=== PATIENT | female | born 1980 | race Caucasian/White ===

== ENCOUNTER 2022-06-15 08:12 | Outpatient (CLI) | payer BC, SELFPAY ==
--- NOTE | 2022-06-15 08:15 | CRLHL7_ITS ---
For Patients: As a result of the Century Cures Act, medical imaging exams and procedure reports are released immediately into your electronic medical record. You may view this report before your referring provider. If you have questions, please contact your health care provider. LEFT BREAST ULTRASOUND CLINICAL HISTORY: LEFT breast mass/asymmetry. COMPARISON: 06/05/2022. TECHNIQUE: Real-time ultrasound imaging of LEFT breast with imaging documentation. FINDINGS: Targeted sonogram LEFT breast 11 o`clock 3 cm from the nipple performed. This corresponds with the area of nodular density on prior mammogram. In this location there is a simple circumscribed anechoic cyst with increased through-transmission measuring 2.4 x 1.4 x 1.7 cm. IMPRESSION: Simple cyst LEFT breast 11 o`clock 3 cm from the nipple measuring 2.4 cm. RECOMMENDATIONS: Routine BILATERAL screening mammography in 1 year time. Results and recommendations were discussed with the patient at the time of the exam. BI-RADS Category 2: Benign A lay language report of this examination will be provided to the patient. Dictated by Harnider Ruiz MD @ 06/15/2022 9:00:15 AM jj/Dictated by: Harinder Ruiz MD @ 06/15/2022 9:00:00 AM (Electronically Signed)
== END 2022-06-15 08:13 | disposition home or self-care (01) ==
LOC: MAMMO 08:13
PROVIDERS: PCP Family Medicine; Visit Provider Family Medicine
DX: N63.20 Unspecified lump in the left breast, unspecified quadrant (principal); N60.02 Solitary cyst of left breast; R92.8 Other abnormal and inconclusive findings on diagnostic imaging of breast
CPT/HCPCS: 76642

== ENCOUNTER 2024-08-10 13:31 | Outpatient (CLI) | payer OTHER, SELFPAY ==
[2024-08-14 13:00] LABS: HPV Source Cervical; HPV, High Risk by TMA Not Detected
== END 2024-08-10 13:32 | disposition home or self-care (01) ==
PROVIDERS: PCP Family Medicine; Visit Provider Obstetrics & Gynecology
DX: E28.39 Other primary ovarian failure (principal); R68.82 Decreased libido; E28.319 Asymptomatic premature menopause; Z12.4 Encounter for screening for malignant neoplasm of cervix; Z11.51 Encounter for screening for human papillomavirus (HPV)
CPT/HCPCS: 84270; 84402; 84403; 84443; 86255; 86376; 87624; 87625; 88141; 88142

== ENCOUNTER 2024-11-21 15:21 | Outpatient (CLI) | payer OTHER, SELFPAY ==
--- NOTE | 2024-11-21 15:45 | CRLHL7_ITS ---
For Patients: As a result of the Century Cures Act, medical imaging exams and procedure reports are released immediately into your electronic medical record. You may view this report before your referring provider. If you have questions, please contact your health care provider. CLINICAL HISTORY: Primary ovarian failure TECHNIQUE: Real time, beaver scale images were acquired of the pelvis using a transabdominal and transvaginal approach. Color Doppler analysis was performed of the ovaries. FINDINGS: The uterus measures 9.3 x 4.7 x 4.6 centimeters. The endometrium measures 5 millimeters. The right ovary measures 2.5 x 2.3 x 2.7 centimeters left ovary measures 2.5 x 1.5 x 2.1 centimeters. Blood flow to both ovaries. Benign-appearing follicular cysts. Small amount of free fluid in the pelvis. IMPRESSION: Unremarkable exam. Dictated by Shagufta Barclay MD @ 11/24/2024 9:45:20 AM (Electronically Signed)
== END 2024-11-21 15:22 | disposition home or self-care (01) ==
LOC: US 15:22
PROVIDERS: Visit Provider Obstetrics & Gynecology
DX: E28.39 Other primary ovarian failure (principal)
CPT/HCPCS: 76830; 76856

== ENCOUNTER 2025-03-13 16:45 | Outpatient (CLI) | payer OTHER, SELFPAY ==
--- NOTE | 2025-03-13 17:00 | CRLHL7_ITS ---
For Patients: As a result of the Century Cures Act, medical imaging exams and procedure reports are released immediately into your electronic medical record. You may view this report before your referring provider. If you have questions, please contact your health care provider. INDICATION: BILATERAL SCREENING MAMMOGRAM, ASYMPTOMATIC 44 Y/O FEMALE COMPARISON: 06/05/2022, 05/06/2021, 04/29/2021 TECHNIQUE: Digital mammogram in CC and MLO projections including computer-aided detection (CAD) and tomosynthesis. BREAST COMPOSITION: The breasts are heterogeneously dense, which may obscure small masses. FINDINGS: No suspicious findings. ASSESSMENT: BI-RADS 1 Negative RECOMMENDATION: Annual screening mammogram. A lay language report of this examination will be provided to the patient. Dictated by: Harinder Ruiz MD @ 03/14/2025 09:21:44 (Electronically Signed)
== END 2025-03-13 16:46 | disposition home or self-care (01) ==
PROVIDERS: Visit Provider Obstetrics & Gynecology
DX: Z12.31 Encounter for screening mammogram for malignant neoplasm of breast (principal); R92.333 Mammographic heterogeneous density, bilateral breasts
CPT/HCPCS: 77063; 77067

== ENCOUNTER 2025-04-18 13:16 | Outpatient (CLI) | payer OTHER, SELFPAY ==
--- NOTE | 2025-04-18 14:00 | CRLHL7_ITS ---
For Patients: As a result of the Century Cures Act, medical imaging exams and procedure reports are released immediately into your electronic medical record. You may view this report before your referring provider. If you have questions, please contact your health care provider. XR DXA Bone Mineral Density (BMD) Reason for exam: Asymptomatic menopausal state. Current height (inches): 65.0 Weight (lbs.): 138.0 Menopause age: 39 Ethnicity: White 1. Have you had a previous hip or vertebral fracture? No. 2. Have you had any fractures during your adult life which did not result from significant trauma (e.g., auto accident)? No. 3. Did either of your parents have a hip fracture? No. 4. Do you smoke? No. 5. Have you ever taken Glucocorticoids? No. 6. Do you have rheumatoid arthritis? No. 7. Do you have secondary osteoporosis? No. 8. Do you drink 3 or more alcoholic drinks per day? No. 9. Are you being treated for osteoporosis? No. 10. Have you ever taken any of the following medications: Actonel, Evista, Fosamax, Miacalcin, Reclast, Boniva, Forteo, HRT (i.e., estrogen/hormone therapy), Protelos, Prolia, Vitamin D, Calcium, other ??? please specify. ANSWER: No. 11. Do you have any of the following medical conditions: Anorexia or bulimia, asthma or emphysema, end stage renal disease, hyperparathyroidism, any seizure disorders, cancer, inflammatory bowel diseases, hysterectomy, other ??? please specify. ANSWER: No. 12. What was your maximum height (inches)? 65. 13. Do you perform weightbearing exercise regularly? No. 14. Do you regularly consume dairy products? Yes. 15. Do you drink caffeinated beverages? Yes. 16. At what age did your period start? 14. 17. Are you premenopausal? No. 18. How many full-term pregnancies have you had? 1. 19. Have you ever missed your period for more than 6 months in a row (not including or menopause)? No. TECHNIQUE: Bone mineral density study was performed using the [employer]. FINDINGS: The results of the study expressed as bone mineral density (BMD) are as follows: Lumbar Spine L1 to L4: BMD: 0.940 g/cm2. T-score: -1.0. Z-score: -0.5. Neck Left: BMD: 0.644 g/cm2. T-score: -1.9. Z-score: -1.4. Right: BMD: 0.681 g/cm2. T-score: -1.5. Z-score: -1.1. Total Left: BMD: 0.829 g/cm2. T-score: -0.9. Z-score: -0.6. Right: BMD: 0.862 g/cm2. T-score: -0.7. Z-score: -0.4. IMPRESSION: Osteopenia. FRAX 10-year Fracture Risk Major Osteoporotic Fracture: 3.4% Hip Fracture: 0.5% Reported Risk Factors: [place] () Neck BMD = 0.644, BMI = 23.0 HARINDER BETANCOURT M.D. Diagnostic Radiologist [email or web address] Transcribed: 5:[address]/Dictated by: Harinder Betancourt MD @ 04/18/2025 2:34:00 PM (Electronically Signed)
== END 2025-04-18 13:17 | disposition home or self-care (01) ==
LOC: RAD 13:17
PROVIDERS: Visit Provider Obstetrics & Gynecology
DX: Z78.0 Asymptomatic menopausal state (principal); M85.89 Other specified disorders of bone density and structure, multiple sites
CPT/HCPCS: 77080